=== PATIENT | female | born 1990 | race Asian ===

== ENCOUNTER 2016-12-15 18:42 | Emergency (ER) | payer OTHER ==
[~2016-12-15] VITALS: Ht 154.9 cm; Wt 66.5 kg
[~2016-12-15 18:42] MED LIST: DOCU-144 PO; PHEN1SUP PR; PRENAT PO
[2016-12-15 19:42] VITALS: Ht 154.9 cm; Wt 66.5 kg
--- NOTE | 2016-12-15 23:04 | RADRPT ---
PROCEDURE: US OB. CLINICAL INDICATION: Vaginal bleeding. TECHNIQUE: Multiple sonographic images of the pelvis were obtained. Transabdominal and transvagin al views of the pelvis are available for review. The images were reviewed on a PACS workstation. COMPARISON: No prior studies are available for comparison. FINDINGS: A single live intrauterine is identified. heart rate is 129 beats per minute. The cr own-rump length is 6.2 cm which corresponds to 6 weeks 3 days gestational age by ultrasound criteria . Estimated date of delivery is 08/07/2017 by crown rump length. There is a small subchorionic hem orrhage adjacent to the gestational sac. There is a 2.4 cm hemorrhagic left ovarian cyst. The ovarie s are otherwise unremarkable with vascular flow identified.. There is no adnexal mass. There is no free fluid. IMPRESSION: 1. Single live intrauterine gestation of approximately 6 weeks 3 days by crown rump length.. 2. Subchorionic hemorrhage present. 3. Hemorrhagic left ovarian cyst. RPTAT: HMVK .Greg Dunaway MD, MD Date Time Electronically viewed and signed by .Greg Dunaway MD, on 12/15/2016 23:03 .K/
--- NOTE | 2016-12-15 23:47 | ERD ---
ER Documentation Chief Complaint Date/Time DATE: 12/15/16 TIME: 23:45 Chief Complaint Vaginal bleed x2 days. 7 wks HPI This is a 26-year-old female who had some vaginal spotting 6 days ago and has had none since and is having some brown colored discharge today. He is having no pelvic cramps no back pain no dysuria no fever no vomiting diarrhea. They are here concerned about the well-being of their 7 week baby. She has had one visit but no ultrasound at this time per ROS All systems reviewed and are negative except as per history of present illness. Medications Home Meds Active Scripts Docusate Sodium* (Colace*) 100 Mg Capsule, 100 MG PO BID, #30 CAP Prov:MARGA DUARTE NP 09/26/16 Phenylephrine HCl/[place] Butter* (Preparation H* Suppository) 1 Each Supp.rect, 1 EACH DC BID, #10 SUPP.RECT Prov:MARGA DUARTE GOLF INSTRUCTOR 09/26/16 Reported Medications Multivit/Min/Fol Ac/Iron/Pren* ( S*) 1 Tab Tab, 1 TAB PO DAILY, TAB 06/18/16 Allergies Allergies: Coded Allergies: No Known Allergy (Unverified , 06/18/16) PMhx/Soc History of Surgery: Yes (CHOLECYSTECTOMY) Anesthesia Reaction: No Hx Neurological Disorder: No Hx Respiratory Disorders: No Hx Cardiac Disorders: No Hx Psychiatric Problems: No Hx Miscellaneous Medical Probl: Yes (BLIGHTED OVUM) Hx Alcohol Use: No Hx Substance Use: No Hx Tobacco Use: No Smoking Status: Never smoker FmHx Family History: No coronary disease Physical Exam Vitals Vital Signs Date Time Temp Pulse Resp B/P Pulse Ox O2 Delivery O2 Flow Rate FiO2 12/15/16 19:42 99.1 94 18 96/60 96 Physical Exam Const: Well-developed, well-nourished Head: Atraumatic, normocephalic Eyes: Normal Conjunctiva, PERRLA, EOMI, normal sclera, no nystagmus ENT: Normal External Ears, Nose and Mouth, moist mucus membranes. Neck: Full range of motion. No meningismus, no lymphadenopathy. Resp: Clear to auscultation bilaterally, no wheezing, rhonchi, rales Cardio: Regular rate and rhythm, no murmurs, S1 S2 present Abd: Soft, non tender x 4, non distended. Normal bowel sounds, no guarding or rebound, no pulsitile abdominal masses or bruits Skin: No petechiae or rashes, no ecchymosis , no maculopapular rash Back: No midline or flank tenderness Ext: No cyanosis, or edema, FROM x 4, normal inspection, neurovascularly intact x 4 Neur: Awake and alert, STR 5/5 x 4, sensation intact x 4, no focal findings, cerebellum intact Psych: Normal Mood and Affect Procedures/MDM PROCEDURE: US OB. CLINICAL INDICATION: Vaginal bleeding. TECHNIQUE: Multiple sonographic images of the pelvis were obtained. Transabdominal and transvaginal views of the pelvis are available for review. The images were reviewed on a PACS workstation. COMPARISON: No prior studies are available for comparison. FINDINGS: A single live intrauterine is identified. heart rate is 129 beats per minute. The crown-rump length is 6.2 cm which corresponds to 6 weeks 3 days gestational age by ultrasound criteria. Estimated date of delivery is by crown rump length. There is a small subchorionic hemorrhage adjacent to the gestational sac. There is a 2.4 cm hemorrhagic left ovarian cyst. The ovaries are otherwise unremarkable with vascular flow identified.. There is no adnexal mass. There is no free fluid. IMPRESSION: 1. Single live intrauterine gestation of approximately 6 weeks 3 days by crown rump length.. 2. Subchorionic hemorrhage present. 3. Hemorrhagic left ovarian cyst. RPTAT: HMVK .Greg Dunaway MD, Date Time Electronically viewed and signed by .Greg Dunaway MD, MD on 12/15/2016 23:03 .K/ CC: MUSTAPHA MORRIS DO Blood type a positive Gave her home vaginal bleeding precautions and signs and symptoms to return Departure Diagnosis: Primary Impression: Threatened Condition: Stable Patient Instructions: Possible Miscarriage (Threatened ) MUSTAPHA MORRIS DO Dec 15, 2016 23:47
[2016-12-16 00:17] VITALS: BP 100/60; PULSE 82; RESP 18; TEMP 98.9
== END 2016-12-16 00:19 | disposition home or self-care (01) ==
LOC: FTE 18:42
DX: O20.0 Threatened abortion (principal)
CPT/HCPCS: 36415; 76801; 76817; 84702; 86900; 86901; Z7502

== ENCOUNTER 2016-12-30 08:44 | Emergency (ER) | payer OTHER ==
[~2016-12-30] VITALS: Ht 157.5 cm; Wt 67.0 kg
[2016-12-30 08:47] VITALS: Ht 157.5 cm; Wt 67.0 kg
[2016-12-30 09:46] LABS: ADD SCAN DIFF NO
[2016-12-30 09:51] LABS: BASOPHILS % 0.2 % (0.0-2.0); EOSINOPHILS # 0.1 10^3/ul (0.0-0.5); EOSINOPHILS % 0.5 % (0.0-7.0); HEMATOCRIT 38.8 % (37.0-47.0); HEMOGLOBIN 12.7 g/dl (12.0-16.0); LYMPHOCYTES # 1.6 10^3/ul (0.8-2.9); LYMPHOCYTES % 14.2 % (15.0-51.0); MEAN CORPUSCULAR HEMOGLOBIN 26.8 pg (29.0-33.0); MEAN CORPUSCULAR HGB CONC 32.7 g/dl (32.0-37.0); MEAN PLATELET VOLUME 10.7 fl (7.4-10.4); MONOCYTE # 0.6 10^3/ul (0.3-0.9); MONOCYTES % 4.9 % (0.0-11.0); NEUTROPHILS % 79.7 % (39.0-77.0); PLATELET COUNT 234 10^3/UL (140-415); RED BLOOD COUNT 4.73 10^6/ul (4.20-5.40); RED CELL DISTRIBUTION WIDTH 13.5 % (11.5-14.5); WHITE BLOOD COUNT 11.3 10^3/ul (4.8-10.8)
[2016-12-30 09:57] LABS: ADD UMIC YES; URINE BILIRUBIN (Dip) NEGATIVE (NEGATIVE); URINE BLOOD (Dip) 2+ (NEGATIVE); URINE COLOR LT. YELLOW (YELLOW); URINE GLUCOSE (Dip) NEGATIVE (NEGATIVE); URINE KETONES (Dip) NEGATIVE (NEGATIVE); URINE LEUKOCYTE ESTERASE (Dip) NEGATIVE (NEGATIVE); URINE NITRITE (Dip) NEGATIVE (NEGATIVE); URINE TOTAL PROTEIN (Dip) NEGATIVE (NEGATIVE); URINE UROBILINOGEN (Dip) 0.2 E.U./dL (0.1-1.0)
--- NOTE | 2016-12-30 10:06 | RADRPT ---
PROCEDURE: US OB. CLINICAL INDICATION: Vaginal bleeding TECHNIQUE: Transabdominal views of the pelvis are available for review. COMPARISON: 12/15/16 FINDINGS: There is a single intrauterine gestation with the crown-rump length measuring 2.2 cm and the gestat ional sac measuring 4.1 cm mean diameter, corresponding to a gestational age of 9 weeks and 2 days. The heart rate is noted at 176 bpm. The ovaries are normal in size and echogenicity. Normal Doppler flow is identified in both ovaries. The right ovary measures 2.6 x 1.8 x 2.2 cm. The left ovary measures 3.4 x 2.4 x 2.8 cm. There is a small simple cyst in the left ovary. There is no free fluid. RPTAT: AA IMPRESSION: Single live intrauterine with an estimated gestational age of 9 weeks and 2 days, based on ultrasound measurements. TELLO based on ultrasound measurements is 08/02/17. No evidence of subchorionic hemorrhage in the current study. .Hernan Mcrae MD, MD Date Time Electronically viewed and signed by .Hernan Mcrae MD, MD on 12/30/2016 10:06 .S/
--- NOTE | 2016-12-30 10:11 | ERD ---
ER Documentation Chief Complaint Date/Time DATE: 12/30/16 TIME: 10:07 Chief Complaint VAGINAL BLEEDING,9 WEEKS HPI 26 yo female comes A1 comes in with vaginal bleeding intermittent since 4pm. Patient reports light bleeding that started yesterday at 4 PM, then started again at 6 PM and resolves overnight and she woke up with a light amount of brown bleeding today. She is approximately 9 weeks , and she was seen here about 3-4 weeks ago that showed a single live intrauterine at 6 weeks. She has not had any fevers, chills, pelvic pain or dizziness associated. ROS All systems reviewed and are negative except as per history of present illness. Medications Home Meds Active Scripts Docusate Sodium* (Colace*) 100 Mg Capsule, 100 MG PO BID, #30 CAP Prov:MARGA DUARTE NP 09/26/16 Phenylephrine HCl/[place] Butter* (Preparation H* Suppository) 1 Each Supp.rect, 1 EACH [place] BID, #10 SUPP.RECT Prov:MARGA DUARTE NP 09/26/16 Reported Medications Multivit/Min/Fol Ac/Iron/Pren* ( S*) 1 Tab Tab, 1 TAB PO DAILY, TAB 06/18/16 Allergies Allergies: Coded Allergies: No Known Allergy (Unverified , 12/30/16) PMhx/Soc History of Surgery: Yes (CHOLECYSTECTOMY) Anesthesia Reaction: No Hx Neurological Disorder: No Hx Respiratory Disorders: No Hx Cardiac Disorders: No Hx Psychiatric Problems: No Hx Miscellaneous Medical Probl: Yes (BLIGHTED OVUM) Hx Alcohol Use: No Hx Substance Use: No Hx Tobacco Use: No Smoking Status: Never smoker Physical Exam Vitals Vital Signs Date Time Temp Pulse Resp B/P Pulse Ox O2 Delivery O2 Flow Rate FiO2 12/30/16 08:47 98 18 105/59 98 Physical Exam General: Well-developed, well-nourished. The patient appears in no acute distress. HEENT: Head is normocephalic, atraumatic. No scleral icterus. Neck: Supple. Nontender. Lungs: Clear to auscultation. Normal air movement. Heart: Regular rate and rhythm. S1 and S2 are normal. No murmurs, gallops, or rubs. Abdomen: Soft, nontender, nondistended. Bowel sounds are normoactive. Extremities: No clubbing or cyanosis. Normal pulses. Moving extremities x 4. No weakness. Neurologic: Alert and oriented 3. No focal deficits. Skin: Normal turgor. No rash or lesions. Result Diagram: 12/30/16 0932 Results 24 hrs Laboratory Tests Test 12/30/16 09:32 White Blood Count 11.310^3/ul Red Blood Count 4.7310^6/ul Hemoglobin 12.7g/dl Hematocrit 38.8% Mean Corpuscular Volume 82.0fl Mean Corpuscular Hemoglobin 26.8pg Mean Corpuscular Hemoglobin Concent 32.7g/dl Red Cell Distribution Width 13.5% Platelet Count 00661^3/UL Mean Platelet Volume 10.7fl Neutrophils % 79.7% Lymphocytes % 14.2% Monocytes % 4.9% Eosinophils % 0.5% Basophils % 0.2% Nucleated Red Blood Cells % 0.0/100WBC Neutrophils # 9.010^3/ul Lymphocytes # 1.610^3/ul Monocytes # 0.610^3/ul Eosinophils # 0.110^3/ul Basophils # 0.010^3/ul Nucleated Red Blood Cells # 0.010^3/ul Urine Color LT. YELLOW Urine Clarity CLEAR Urine pH 6.5 Urine Specific [place] <=1.005 Urine Ketones NEGATIVE Urine Nitrite NEGATIVE Urine Bilirubin NEGATIVE Urine Urobilinogen 0.2 E.U./dL Urine Leukocyte Esterase NEGATIVE Urine Microscopic RBC 2-5/HPF Urine Microscopic WBC NONE SEEN/HPF Urine Epithelial Cells OCCASIONAL Urine Hemoglobin 2+ Urine Glucose NEGATIVE% Urine Total Protein NEGATIVE Beta HCG, Quantitative 398009.0mIU/ml PROCEDURE: US OB. CLINICAL INDICATION: Vaginal bleeding TECHNIQUE: Transabdominal views of the pelvis are available for review. COMPARISON: 12/15/16 FINDINGS: There is a single intrauterine gestation with the crown-rump length measuring 2.2 cm and the gestational sac measuring 4.1 cm mean diameter, corresponding to a gestational age of 9 weeks and 2 days. The heart rate is noted at 176 bpm. The ovaries are normal in size and echogenicity. Normal Doppler flow is identified in both ovaries. The right ovary measures 2.6 x 1.8 x 2.2 cm. The left ovary measures 3.4 x 2.4 x 2.8 cm. There is a small simple cyst in the left ovary. There is no free fluid. RPTAT: AA IMPRESSION: Single live intrauterine with an estimated gestational age of 9 weeks and 2 days, based on ultrasound measurements. TELLO based on ultrasound measurements is 08/02/17. No evidence of subchorionic hemorrhage in the current study. .Hernan Mcrae MD, MD Date Time Electronically viewed and signed by .Hernan Mcrae MD, MD on 12/30/2016 10: 06 Procedures/MDM 26 year old female comes in with vaginal bleeding, she has a single live intrauterine at 9 weeks. Type and Rh is positive, no indication for RhoGam. She is hemodynamically stable, does not show signs of infection, anemia. Patient is to recheck with OB in 3-4 days. Departure Diagnosis: Primary Impression: Vaginal bleeding in patient at less than 20 weeks gestation Condition: RIVAS Botello PA-C Dec 30, 2016 10:11
== END 2016-12-30 11:48 | disposition home or self-care (01) ==
LOC: FTE 08:44
DX: O20.9 Hemorrhage in early pregnancy, unspecified (principal); Z3A.09 9 weeks gestation of pregnancy
CPT/HCPCS: 36415; 76801; 81001; 81003; 84702; 85025; 86900; 86901

== ENCOUNTER 2017-07-23 16:08 | Inpatient (IN) | payer OTHER ==
[~2017-07-23] VITALS: Ht 154.9 cm; Wt 80.2 kg
[~2017-07-23 16:08] MED LIST changes: -PHEN1SUP PR; +PHEN1SUP80 PR
[2017-07-23 16:19] VITALS: Ht 154.9 cm; Wt 80.2 kg
[2017-07-23 16:20] VITALS: BP 106/66; PULSE 98; RESP 17
[2017-07-23] MEDS ORDERED: PREN1TAB79 PO (16:26)
[2017-07-23] MEDS ORDERED: CALC600T5 PO (16:26)
[2017-07-23] MEDS ORDERED: FER325 PO (16:26)
--- NOTE | 2017-07-23 18:01 | RADRPT ---
PROCEDURE: US OB biophysical profile. CLINICAL INDICATION: decreased movements, diabetes TECHNIQUE: Multiple sonographic images of the pelvis were obtained. The images were reviewed on a PACS workstation. COMPARISON: No prior studies are available for comparison. FINDINGS: There is a single viable intrauterine gestation. Cardiac activity is present with 144 beats per min [place]. There is a vertex presentation. The placenta is posterior. There is no evidence of placental abruption. There is a decreased amount of amniotic fluid with an DAVID = 5.4 cm. Biophysical profile: movement 2/2 tone 2/2. breathing 2/2 DAVID 0/2 Total 03/17 RPTAT: AA . IMPRESSION: Abnormal biophysical profile. Oligohydramnios. . .Hernan Mcrae MD, Date Time Electronically viewed and signed by .Hernan Mcrae MD, MD on 07/23/2017 18:01 .S/
--- NOTE | 2017-07-23 18:45 | TRIAGE ---
OB Triage Datetime Report Generated by CPN: 07/23/2017 18:45 Datetime: 07/23/2017 18:00 Labor Evaluation Frequency: 0 Monitor Mode: External Pattern: Normal: <= 5 Contractions in 10 Minutes Resting Tone [place]: Relaxed Heart Rate FHR Baseline Rate: 140 Monitor Mode: External US FHR Baseline Changes: No Baseline Change Variability: Moderate 6-25 bpm Accelerations: 15X15 Decelerations: None Category: Category I Pain Assessment Pain Scale: 0 Pain Presence: None/Denies Pain Type: N/A Datetime: 07/23/2017 17:00 Labor Evaluation Frequency: X2 Monitor Mode: External Duration (sec)2399: 50-70 Quality: Mild Pattern: Normal: <= 5 Contractions in 10 Minutes Resting Tone [place]: Relaxed Heart Rate FHR Baseline Rate: 135 Monitor Mode: External US FHR Baseline Changes: No Baseline Change Variability: Moderate 6-25 bpm Accelerations: 15X15 Decelerations: None Category: Category I Pain Assessment Pain Scale: 0 Pain Presence: None/Denies Pain Type: N/A Datetime: 07/23/2017 16:20 Assessment Type: Triage Maternal Assessment Level of Consciousness: Fully Conscious DTR's/Clonus: DTRs 2+; No Clonus Headache: Denies Blurred Vision: No Respiratory Effort: Unlabored; Regular Rhythm Breath Sounds, Left: Clear and Equal Breath Sounds, Right: Clear and Equal Nausea/Vomiting: Denies RUQ Epigastric Pain: Denies Lower Extremities Edema: None Degree: None Upper Extremities Edema: None Degree: None Facial Edema: None Fall Risk Assessment History of Falling: (0) No Secondary Diagnosis: (0) No Ambulatory Aid: (0) Bedrest/Nurse Assist IV Therapy: (0) No Gait: (0) Normal/Bedrest/Immobile Mental Status: (0) Oriented to Own Ability Fall Score: 0 Fall Risk Score Definition: No Risk: No action required Datetime: 07/23/2017 16:19 EGA: 38.0 Datetime: 07/23/2017 16:16 Pain Assessment Pain Scale: 0 Pain Presence: None/Denies Pain Type: N/A Datetime: 07/23/2017 16:14 Time of Arrival: 07/23/2017 16:05 Arrived By: Ambulatory Arrived From: Dr. Underwood Chief Complaint: PT PRESENTS TO TRIAGE FOR NST/BPP, PATIENT IS A LATE DIABETES DIAGNOSIS Movement: Present Contractions: Denies/Absent Rupture of Membranes: Denies Vaginal Bleeding: None Vaginal Discharge: Denies Recent Sexual Intercouse: Denies Abdominal Trauma: Not Applicable Patient Complaints: None Additional Patient Complaints: FBS 0500: 87, REPORTED PER PT Time Provider Notified: 07/23/2017 18:08 Provider Notified: KARINA Initial Plan: NST/BPP
[2017-07-23] MEDS ORDERED: LACTATED RINGER'S 1,000 ML IV PRN (18:56)
[2017-07-23] MEDS ORDERED: CARBOPROST 250 MCG INJ IM PRN (19:00)
[2017-07-23] MEDS ORDERED: OXYTOCIN 30 UNITS/LR 500 ML IV PRN (19:00)
[2017-07-23] MEDS ORDERED: MISOPROSTOL 200 MCG TAB PR PRN (19:00)
[2017-07-23] MEDS ORDERED: METHYLERGONOVINE 0.2 MG INJ IM PRN (19:00)
[2017-07-23] MEDS ORDERED: OXYTOCIN 30 UNITS/LR 500 ML IV SCH ×2 (19:00)
[2017-07-23] MEDS ORDERED: LIDOCAINE 1% (MPF) 30 ML INJ INJ PRN (19:00)
[2017-07-23 19:32] LABS: BASOPHILS % 0.2 % (0.0-2.0); EOSINOPHILS # 0.1 10^3/ul (0.0-0.5); EOSINOPHILS % 0.9 % (0.0-7.0); HEMATOCRIT 33.9 % (37.0-47.0); HEMOGLOBIN 11.2 g/dl (12.0-16.0); LYMPHOCYTES # 1.4 10^3/ul (0.8-2.9); LYMPHOCYTES % 14.1 % (15.0-51.0); MEAN CORPUSCULAR HEMOGLOBIN 28.4 pg (29.0-33.0); MONOCYTE # 0.8 10^3/ul (0.3-0.9); NEUTROPHIL # 7.2 10^3/ul (1.6-7.5); NEUTROPHILS % 74.2 % (39.0-77.0); PLATELET COUNT 168 10^3/UL (140-415); RED BLOOD COUNT 3.94 10^6/ul (4.20-5.40); WHITE BLOOD COUNT 9.7 10^3/ul (4.8-10.8)
[2017-07-23 19:48] LABS: PROTIME 13.2 Sec (12.2-14.2)
[2017-07-23 19:49] LABS: PARTIAL THROMBOPLASTIN TIME 27.9 Sec (25.0-35.0)
[2017-07-23] MEDS: LACTATED RINGER'S 1,000 ML IV SCH ×2 (19:54→21:32)
[2017-07-23 19:58] LABS: GLUCOSE 105 mg/dl (70-220)
[2017-07-24] MEDS: LACTATED RINGER'S 1,000 ML IV SCH ×4 (03:12→22:10)
[2017-07-24] MEDS ORDERED: BUTORPHANOL 2 MG INJ ONE (07:30)
[2017-07-24] MEDS ORDERED: BUTORPHANOL 2 MG INJ IV ONE (07:40)
[2017-07-24] MEDS ORDERED: CEFAZOLIN 2 GM/50 ML (PMX) 50 ML IVPB SCH (08:00)
[2017-07-24] MEDS ORDERED: TERBUTALINE 1 ML ONE (08:07)
[2017-07-24] MEDS ORDERED: TERBUTALINE 1 MG/ML INJ SC ONE (08:10)
[2017-07-24] MEDS ORDERED: CEFAZOLIN 2 GM/50 ML (PMX) 50 ML IVPB ONE (08:29)
[2017-07-24] MEDS ORDERED: OXYTOCIN 30 UNITS/LR 500 ML IV PRN ×2 (08:30→09:00)
[2017-07-24] MEDS ORDERED: MISOPROSTOL 200 MCG TAB PR PRN ×2 (08:30→09:00)
[2017-07-24] MEDS ORDERED: METHYLERGONOVINE 0.2 MG INJ IM PRN ×2 (08:30→09:00)
[2017-07-24] MEDS ORDERED: CARBOPROST 250 MCG INJ IM PRN ×2 (08:30→09:00)
[2017-07-24] MEDS ORDERED: CITRIC ACID/NA CITRATE 30 ML CUP PO ONE (08:34)
[2017-07-24] MEDS ORDERED: ONDANSETRON 4 MG INJ IV STA (08:34)
[2017-07-24] MEDS ORDERED: ONDANSETRON 4 MG INJ ONE ×2 (08:36→08:50)
[2017-07-24] MEDS ORDERED: CITRIC ACID/NA CITRATE 30 ML CUP ONE (08:36)
[2017-07-24] MEDS ORDERED: PHENYLephrine (100 MCG/ML) 5ML SYG ONE ×2 (08:50→09:18)
[2017-07-24] MEDS ORDERED: KETOROLAC 30 MG INJ ONE (08:51)
[2017-07-24] MEDS ORDERED: OXYTOCIN 10 UNIT INJ ONE (08:51)
[2017-07-24] MEDS ORDERED: morphine SULFATE/PF (10 MG/10 ML) INJ ONE (08:51)
[2017-07-24] MEDS ORDERED: METOCLOPRAMIDE 10 MG INJ ONE (08:51)
[2017-07-24] MEDS ORDERED: DEXAMETHASONE 4 MG/ML 1 ML INJ ONE (08:51)
[2017-07-24] MEDS ORDERED: NA PHOSPHATE/BIPHOS 133 ML ENEMA PR PRN (09:00)
[2017-07-24] MEDS ORDERED: HYDROCODONE/APAP (5/325) TAB PO PRN ×3 (09:00→09:30)
[2017-07-24] MEDS ORDERED: LANOLIN 7 GM TUBE TOP PRN (09:00)
[2017-07-24] MEDS ORDERED: METHYLERGONOVINE 0.2 MG TAB PO PRN (09:00)
[2017-07-24] MEDS ORDERED: CEFAZOLIN 2 GM/50 ML (PMX) 50 ML IV SCH (09:00)
--- NOTE | 2017-07-24 09:26 | RADRPT ---
PROCEDURE: US OB. CLINICAL INDICATION: Low DAVID , pain TECHNIQUE: Transabdominal views of the pelvis are available for review. COMPARISON: 07/23 FINDINGS: There is a single intrauterine gestation in a vertex position. The heart rate is noted at 139 bpm. The placenta is fundal. The DAVID measures 6.1 cm. RPTAT: AA IMPRESSION: DAVID measures 6.1 cm. .Hernan Mcrae MD, MD Date Time Electronically viewed and signed by .Hernan Mcrae MD, MD on 07/24/2017 09:26 .S/
[2017-07-24] MEDS ORDERED: ACETAMINOPHEN 500 MG TAB PO PRN (09:30)
[2017-07-24] MEDS ORDERED: HYDROmorphONE 0.5 MG/0.5 ML SYG IV PRN ×2 (09:30)
[2017-07-24] MEDS ORDERED: DIPHENHYDRAMINE 50 MG INJ IV PRN (09:30)
[2017-07-24] MEDS ORDERED: morphine 2 MG INJ IV PRN (09:30)
[2017-07-24] MEDS ORDERED: NALBUPHINE HCL (10 MG/1 ML) INJ IV PRN (09:30)
[2017-07-24] MEDS ORDERED: ONDANSETRON 4 MG INJ IV PRN (09:30)
[2017-07-24] MEDS ORDERED: morphine 4 MG/ML VIAL IV PRN (09:30)
[2017-07-24] MEDS ORDERED: NALOXONE (0.4 MG/ML) INJ IV PRN (09:30)
--- NOTE | 2017-07-24 10:11 | SIPON ---
Date/Time of Note Date/Time of Note DATE: 07/24/17 TIME: 10:08 Operative Report Preoperative Diagnosis 38 weeks previous c/s in labor oligohydramnios Postoperative Diagnosis same polycystic ovaries severe uterine adhesions Operation/Procedure Performed repeat low segment transverse c/s Surgeon see signature line habilitation assistant shamsian Anesthesia: spinal Estimated blood loss: other Transfusion Required none Specimen placenta omentum Grafts/Implants none Complications none VARUN COLLINS MD Jul 24, 2017 10:11
--- NOTE | 2017-07-24 12:21 | OPR ---
DATE OF OPERATION: 07/24/2017 OPERATION PERFORMED: Repeat low segment transverse section, severe lysis of adhesions. PREOPERATIVE DIAGNOSES: 38 weeks , previous section, in labor, oligohydramnios. POSTOPERATIVE DIAGNOSIS: 38 weeks , previous section, in labor, oligohydramnios p fan polycystic ovaries and severe uterine adhesions. SURGEON: Varun Marin MD CONVERTIBLE TOP INSTALLER: Kanika Pablo MD ANESTHESIA: Spinal with . PROCEDURES: Without complications. PROCEDURE: The patient was given a spinal anesthesia, placed in the supine position. A Og ambar ter was placed in the bladder. The abdomen was prepped and draped. A suprapubic incision was made 2 cm up the pubic bone and the incision was about 10 cm in length. The abdominal cavity was reached . We encountered adhesions of the uterus to the anterior abdominal wall and omental adhesions as we ll. At this time, some omental adhesions were done and then the bladder flap was made. The uterus was opened in the midline with the incision increased on either side for about 3 inches. The baby's head was delivered after the cord was unwrapped from the neck twice and then the baby was delivered . The cord was very thin, clamped and cut and the baby was handed over to the despatch clerk team. The cord blood was obtained. The uterus was cleaned out after the placenta was removed. At this ti me, the uterus was removed to lyse the adhesions that were from the uterus to the anterior abdominal wall. The lysis of adhesions was done from the anterior abdominal wall mostly on the right side un til the uterus was freed and omental adhesions were also extensive and were cleaned out of the uteru s and from the areas of the adhesions of the uterus to the abdominal wall. A piece of omentum had t o be removed to clear the adhesions and the clamps were placed and the excision of the omentum was d one which was a large piece and suture of this stump was done with 2-0 Vicryl sutures. Hemostasis w as good. The abdominal cavity was cleaned out after the uterus was closed with #1 Monocryl continuo us suture in 2 layers, imbedding the first line of suture and hemostasis has been adequate. The cav ity was visualized under water and there was no active bleeding. The ovaries were extremely large w ith the left side almost with a double ovary with very large ovaries on both sides, mainly on the le ft. Both tubes were normal. A piece of Interceed was left in the area of the adhesion and also in the area of the to prevent more adhesions for next time. The peritoneum was closed with a 2-0 Vicryl suture. The fascia was closed with 0 PDS looped suture, 2-0 Vicryl for the subcutaneous tissue, and 3-0 Monocryl subcuticular to the skin. Dermabond and Steri-Strips were applied. The p atient tolerated the procedure well and left the OR awake and stable. Sponge counts and instrument counts were correct. Intravenous antibiotics were given for prophylaxis. Blood loss was approximat gaetano 600 mL and the urine was clear at the end of the procedure. Dictated By: VARUN VILLARREAL/THERESA Conf#: [id number] DID#: [id number]
[2017-07-24] MEDS: OXYTOCIN 30 UNITS/LR 500 ML IV SCH ×2 (14:06→18:18)
[2017-07-24 14:30] VITALS: BP 120/70; PULSE 97; RESP 18
[2017-07-24] MEDS: SENNA/DOCUSATE NA (8.6MG/50MG) TAB PO SCH ×2 (14:30→21:00)
[2017-07-24] MEDS: IBUPROFEN 800 MG TAB PO SCH ×2 (14:30→21:48)
[2017-07-24 15:40] VITALS: BP 119/67; PULSE 102; RESP 17
[2017-07-24] MEDS: CEFAZOLIN 2 GM/50 ML (PMX) 50 ML IV SCH (17:13)
[2017-07-24 19:30] VITALS: BP 100/50; PULSE 91; RESP 18
[2017-07-25] MEDS: CEFAZOLIN 2 GM/50 ML (PMX) 50 ML IV SCH ×2 (01:03→07:42)
[2017-07-25 05:00] VITALS: BP 113/58; RESP 19
[2017-07-25] MEDS: KETOROLAC 30 MG INJ IV PRN ×3 (05:24→20:36)
[2017-07-25] MEDS: LACTATED RINGER'S 1,000 ML IV SCH (05:24)
[2017-07-25] MEDS: IBUPROFEN 800 MG TAB PO SCH ×3 (05:29→22:00)
[2017-07-25 07:30] VITALS: BP 113/60; PULSE 98; RESP 18
[2017-07-25] MEDS: SENNA/DOCUSATE NA (8.6MG/50MG) TAB PO SCH ×2 (10:22→20:37)
[2017-07-25 10:31] LABS: HEMOGLOBIN 10.7 g/dl (12.0-16.0); RED BLOOD COUNT 3.79 10^6/ul (4.20-5.40); WHITE BLOOD COUNT 11.5 10^3/ul (4.8-10.8)
[2017-07-25 10:32] LABS: BASOPHILS % 0.3 % (0.0-2.0); EOSINOPHILS % 0.3 % (0.0-7.0); HEMATOCRIT 32.9 % (37.0-47.0); LYMPHOCYTES # 1.7 10^3/ul (0.8-2.9); LYMPHOCYTES % 14.6 % (15.0-51.0); MEAN CORPUSCULAR HEMOGLOBIN 28.2 pg (29.0-33.0); MEAN CORPUSCULAR HGB CONC 32.5 g/dl (32.0-37.0); MEAN CORPUSCULAR VOLUME 86.8 fl (82.0-101.0); MEAN PLATELET VOLUME 10.7 fl (7.4-10.4); MONOCYTE # 0.8 10^3/ul (0.3-0.9); MONOCYTES % 6.9 % (0.0-11.0); NEUTROPHIL # 8.8 10^3/ul (1.6-7.5); NEUTROPHILS % 76.6 % (39.0-77.0); PLATELET COUNT 171 10^3/UL (140-415); RED CELL DISTRIBUTION WIDTH 15.4 % (11.5-14.5)
--- NOTE | 2017-07-25 12:56 | PN ---
Date/Time of Note Date/Time of Note DATE: 07/25/17 TIME: 12:55 Assessment/Plan Lines/Catheters IV Catheter Type (from Nrsg): Peripheral IV Subjective 24 Hr Interval Summary day 1 postop afebrile, feels good , up and about, passing gases Constitutional: no complaints Feeding: advancing diet Pain Control: well controlled Detailed Summary Eyes: no complaints ENT: no complaints Respiratory: no complaints Cardiovascular: no complaints Gastrointestinal: no complaints Genitourinary: no complaints Musculoskeletal: no complaints Skin: no complaints Neurologic: no complaints Endocrine: no complaints Lymphatic: no complaints Psychological: nl mood/affect, no complaints Immunologic: no complaints Exam/Review of Systems Vital Signs Vitals Vital Signs Date Time Temp Pulse Resp B/P Pulse Ox O2 Delivery O2 Flow Rate FiO2 07/25/17 08:59 99 21 07/25/17 07:30 98.6 98 18 113/60 Room Air Intake and Output 07/24/17 07/24/17 07/25/17 15:00 23:00 07:00 Intake Total 775 ml 1175 ml Output Total 1100 ml 725 ml 800 ml Balance -1100 ml 50 ml 375 ml Exam Constitutional: alert, oriented, well developed Psych: nl mood/affect, no complaints Head: atraumatic, normocephalic Eyes: EOMI, nl conjunctiva, nl lids, nl sclera ENMT: mucosa pink and moist, nl external ears & nose, nl lips & teeth, nl nasal mucosa & septum Neck: non-tender, supple Respiratory: clear to auscultation, normal air movement Cardiovascular: nl pulses, regular rate and rhythm Gastrointestinal: nl liver, spleen, non-tender, soft Musculoskeletal: nl extremities to inspection, nl gait and stance Extremities: normal pulses Neurological: STRING CUTTER II-XII intact, nl mental status, nl speech, nl strength Skin: nl turgor, rash or lesions Lymph: nl lymph nodes Results Result Diagram: 07/25/17 1006 07/23/173 VARUN COLLINS MD Jul 25, 2017 12:56
[2017-07-25 16:00] VITALS: BP 108/69; PULSE 87; RESP 18
[2017-07-25 20:45] VITALS: BP 118/70; PULSE 102
[2017-07-26 04:45] VITALS: BP 111/63; PULSE 94; RESP 16
[2017-07-26] MEDS: KETOROLAC 30 MG INJ IV PRN (05:30)
[2017-07-26] MEDS: IBUPROFEN 800 MG TAB PO SCH ×3 (05:49→21:56)
[2017-07-26 08:30] VITALS: BP 120/72; PULSE 71; RESP 16
[2017-07-26] MEDS: SENNA/DOCUSATE NA (8.6MG/50MG) TAB PO SCH ×2 (09:13→21:56)
--- NOTE | 2017-07-26 09:38 | PN ---
Date/Time of Note Date/Time of Note DATE: 07/26/17 TIME: 09:37 Assessment/Plan Lines/Catheters IV Catheter Type (from Nrsg): Saline Lock Subjective 24 Hr Interval Summary DAY 2 POSTOP Constitutional: BM, ambulates, flatus, improved, no complaints, urine output Feeding: advancing diet Pain Control: well controlled Detailed Summary Eyes: no complaints ENT: no complaints Respiratory: no complaints Cardiovascular: no complaints Gastrointestinal: no complaints Genitourinary: no complaints Musculoskeletal: no complaints Skin: no complaints Neurologic: no complaints Endocrine: no complaints Lymphatic: no complaints Psychological: nl mood/affect, no complaints Immunologic: no complaints Exam/Review of Systems Vital Signs Vitals Vital Signs Date Time Temp Pulse Resp B/P Pulse Ox O2 Delivery O2 Flow Rate FiO2 07/26/17 04:45 97.9 94 16 111/63 Room Air 07/25/17 08:59 99 21 Intake and Output 07/25/17 07/25/17 07/26/17 15:00 23:00 07:00 Intake Total 300 ml Output Total 500 ml 700 ml Balance -200 ml -700 ml Exam Constitutional: alert, oriented, well developed Psych: nl mood/affect, no complaints Head: atraumatic, normocephalic Eyes: EOMI, nl conjunctiva, nl lids, nl sclera ENMT: mucosa pink and moist, nl external ears & nose, nl lips & teeth, nl nasal mucosa & septum Neck: non-tender, supple Respiratory: clear to auscultation, normal air movement Cardiovascular: nl pulses, regular rate and rhythm Gastrointestinal: nl liver, spleen, non-tender, soft Musculoskeletal: nl extremities to inspection, nl gait and stance Extremities: normal pulses Neurological: BOILER WELDER II-XII intact, nl mental status, nl speech, nl strength Skin: nl turgor, rash or lesions Lymph: nl lymph nodes Results Result Diagram: 07/25/17 1006 07/23/171922 VARUN COLLINS MD Jul 26, 2017 09:38
[2017-07-26] MEDS ORDERED: BISACODYL (EC) 5 MG TAB PO ONE (10:00)
[2017-07-26 13:46] LABS: RUBELLA ANTIBODY - IGG 4.87 index
[2017-07-26 16:15] VITALS: BP 121/66; PULSE 77; RESP 18
[2017-07-26 20:50] VITALS: BP 110/59; PULSE 77; RESP 16
--- NOTE | 2017-07-27 01:59 | PREOPHP ---
DATE OF ADMISSION: 07/23/2017 HISTORY OF PRESENT ILLNESS: This is a 26-year-old female, 3, para 1 with 1 missed and 1 section in 2015 a missed . The patient with a last period of , EDC of 08/06/2017. This patient was admitted on 07/23/2017 due to contractions, and due to oligo hydramnios. She had come in for evaluation of NST, BPP and she was diagnosed with oligohydramnios. The patient was admitted overnight and she was found to have contractions and active labor with a p revious section, and also a history of GBS positive. The patient was scheduled for a repea t section for 07/30/2017 at 39 weeks. She is active in labor and crying in pain, and she i s being admitted for a repeat section. PAST MEDICAL HISTORY: Unremarkable except for her and a gallbladder removal. FAMILY HISTORY: Noncontributory. ALLERGIES: SHE IS NOT ALLERGIC TO ANY MEDICATION. SOCIAL HISTORY: She does not drink or smoke, and no history of drugs. PHYSICAL EXAMINATION: VITAL SIGNS: She is 5 feet 1 inch, and her weight is 178, blood pressure is 110/70, pulse is 80, re spirations 16. HEAD AND NECK: Normal. CHEST: Clear. HEART: Normal sinus rhythm. LUNGS: Clear. BREASTS: Soft, nontender, no masses. ABDOMEN: Soft. Uterus at term with contractions every 2 to 3 minutes. The patient is in pain. Th e cervical dilatation is 2 to 3 cm, 70% effacement. The membranes are intact. Cephalic presentatio n. EXTREMITIES: Normal with normal pulses and no edema. Normal reflexes. DIAGNOSIS: Thirty-eight weeks , oligohydramnios, patient in labor, previous secti on. She is undergoing a repeat section. She was advised of the possible risks and possibl e complications of the procedure with her alternatives and options. Written information was provide d. She had no more questions and agreed to go ahead with the procedure, with full understanding and no more questions. Dictated By: VARUN VILLARREAL/THERESA Conf#: [id number] DID#: [id number]
[2017-07-27 04:30] VITALS: BP 115/78; PULSE 67; RESP 17
[2017-07-27] MEDS: IBUPROFEN 800 MG TAB PO SCH ×2 (05:47→13:48)
[2017-07-27 08:00] VITALS: BP 119/72; PULSE 71; RESP 18
[2017-07-27] MEDS ORDERED: DIPHTH/TET/ACEL PERTUSS (ADULT) 0.5 ML VIAL IM* ONE (09:00)
[2017-07-27] MEDS: SENNA/DOCUSATE NA (8.6MG/50MG) TAB PO SCH (09:39)
--- NOTE | 2017-07-27 14:38 | PD.PPDC ---
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
--- NOTE | 2017-07-28 03:11 | DS ---
DATE OF ADMISSION: 07/23/2017 DATE OF DISCHARGE: 07/27/2017 ADMITTING DIAGNOSES: 1. 38 weeks' . 2. Oligohydramnios, in labor. 3. Previous section. POSTOPERATIVE DIAGNOSES: 1. 38 weeks' . 2. Oligohydramnios, in labor. 3. Previous section. PROCEDURE: Repeat section. COMPLICATIONS: None. HISTORY: This is a 26-year-old female, 3, para 1. This patient came on the night of 2016 with irregular contractions. NST and BPPs were done. Oligohydramnios was observed. The patie nt was observed for labor, which was confirmed the next day and a repeat section was perfor med. She did very well after surgery. She had a normal laboratory testing after delivery. She had some anemia that was asymptomatic. The patient was given vitamins. She is advised to see me in e office in a week. She is tolerating diet. She is voiding well. The incision is clean and dry. She is ambulating. She had bowel movements, and she is active already, in good spirits to go home. The patient is stable and in good condition. She is going home on ibuprofen and [place] p.r.n. pain. She was given further instructions of what to do and not to do at home, and to see me in the [facility] e in a week or earlier if she had any problems. Dictated By: VARUN VILLARREAL/THERESA Conf#: [id number] DID#: [id number]
== END 2017-07-27 15:10 | disposition home or self-care (01) | DRG 765 ==
LOC: OBT 16:08 → L-D 16:08 → MERGE 18:08 → L-D 18:08 → OBT 18:08 → L-D 07-24 08:43 → PP1 07-24 14:20
PROVIDERS: ADMIT Obstetrics & Gynecology; ATTEND Obstetrics & Gynecology
PROC: 3E0P3VZ Introduction of Hormone into Female Reproductive, Percutaneous Approach (ICD-10-PCS; 2017-07-24)
PROC: 10D00Z1 Extraction of Products of Conception, Low, Open Approach (ICD-10-PCS; principal; 2017-07-24 10:00)
DX: O34.211 Maternal care for low transverse scar from previous cesarean delivery (principal); O41.03X0 Oligohydramnios, third trimester, not applicable or unspecified; O99.89 Other specified diseases and conditions complicating pregnancy, childbirth and the puerperium; O34.83 Maternal care for other abnormalities of pelvic organs, third trimester; N73.6 Female pelvic peritoneal adhesions (postinfective); Z3A.38 38 weeks gestation of pregnancy; Z37.0 Single live birth
CPT/HCPCS: 76815; 76818; 82947; 85025; 85610; 85730; 86592; 86703; 86762; 86900; 86901; 87340; 88304; 90715; 94760; 99464; G0463; J0595; J0690; J1100; J1885; J2274; J2370; J2405; J2590; J2765; J3105; J7120